=== PATIENT | female | born 1965 | race Caucasian/White ===

== ENCOUNTER 2019-06-03 12:11 | Inpatient (IN) | payer MEDICAID ==
[~2019-06-03] VITALS: Ht 165.1 cm; Wt 100.0 kg
[~2019-06-03 12:11] MED LIST: CLIN300C54 PO
[2019-06-03] MEDS ORDERED: fentaNYL/PF 50MCG/1 ML 2ML syringe IV ONE (12:45)
[2019-06-03] MEDS ORDERED: metoclopramide 5 mg/ml inj IV ONE (12:45)
[2019-06-03] MEDS ORDERED: ketorolac tromethamine 15mg/ml inj. IV ONE (12:45)
[2019-06-03] MEDS ORDERED: ketorolac trometh. 30mg/ml inj. IV ONE (12:45)
[2019-06-03] MEDS ORDERED: NO HOME MEDS (13:15)
[2019-06-03 13:17] LABS: BASOPHILS % (AUTO) 0.2 % (0-1); EOSINOPHILS % (AUTO) 0 % (0-6); HEMATOCRIT 36.3 % (35.0-45.0); HEMOGLOBIN 12.3 g/dl (12.0-16.0); LYMPHOCYTES % (AUTO) 4.4 % (21-51); MEAN CORPUSCULAR HGB CONC 33.8 g/dL (33.0-36.5); MEAN CORPUSCULAR VOLUME 88.6 FL (78-98); MONOCYTES # (AUTO) 1.2 X10'3 (0-0.9); MONOCYTES % (AUTO) 5.5 % (2-12); NEUTROPHILS # (AUTO) 19.3 X10'3 (1.8-7.7); NEUTROPHILS % (AUTO) 89.9 % (42-75); PLATELET COUNT 230 X10'3 (140-440); RED CELL DISTRIBUTION WIDTH 13.1 % (11.5-14.5); WHITE BLOOD COUNT 21.5 X10'3 (4.5-11.0)
[2019-06-03] MEDS ORDERED: levoFLOXACIN-Levaquin 750MG/D5 150 ML IV STA (13:21)
[2019-06-03] MEDS ORDERED: normal saline 1000ML IV soln IVB ONE ×2 (13:25)
[2019-06-03 13:29] LABS: PARTIAL THROMBOPLASTIN TIME 32 SECONDS (22-32)
[2019-06-03] MEDS ORDERED: iohexol 350MG/ML 100ml bottle IV ONE (13:30)
--- NOTE | 2019-06-03 13:35 | NUR ---
INITIATED ULTRASOUND GUIDED 20 GAUGE IV TO PT RIGHT UPPER ARM, PT TOLERATED PROCEDURE WELL.
[2019-06-03 13:47] LABS: PLATELET ESTIMATE NORMAL; TOTAL CELLS COUNTED 100
[2019-06-03 13:57] LABS: ALANINE AMINOTRANSFERASE 21 U/L (12-78); ALBUMIN 3.1 G/DL (3.4-5.0); ALBUMIN/GLOBULIN RATIO 0.7 (1.1-1.5); ALKALINE PHOSPHATASE 81 IU/L (46-116); ANION GAP 11 (8-16); ASPARTATE AMINO TRANSFERASE 12 U/L (10-37); BILIRUBIN,TOTAL 1.3 MG/DL (0.1-1.0); BLOOD UREA NITROGEN 17 MG/DL (7-18); BUN/CREATININE RATIO 17.2 (6.6-38.0); CALCIUM 8.9 MG/DL (8.5-10.1); CHLORIDE 99 MMOL/L (99-107); CREATININE 0.99 MG/DL (0.40-0.90); GLUCOSE 137 MG/DL (70-104); POTASSIUM 3.3 MMOL/L (3.5-5.1); SODIUM 135 MMOL/L (135-145); TOTAL CARBON DIOXIDE 25.3 MMOL/L (24-32); TOTAL PROTEIN 7.4 G/DL (6.4-8.2); eGFR 59 ML/MIN
[2019-06-03] MEDS: levoFLOXACIN-Levaquin 750MG/D5 150 ML IV STA ×2 (14:09→14:12)
[2019-06-03] MEDS ORDERED: aspirin 325mg tablet PO ONE (14:20)
[2019-06-03] MEDS ORDERED: ASPI-10 PO (14:35)
[2019-06-03] MEDS ORDERED: magnesium hydroxide 30ml (MOM) UD suspension PO PRN (14:45)
[2019-06-03] MEDS ORDERED: mag hydrox/Alum hydrox/simeth 30ml oral suspension PO PRN (14:45)
[2019-06-03] MEDS ORDERED: morphine 2 MG/ML inj. syringe IV PRN (14:45)
[2019-06-03] MEDS ORDERED: ondansetron/PF 4mg/2ml inj IV PRN (14:45)
[2019-06-03] MEDS ORDERED: acetaminophen 325mg tablet PO PRN (14:45)
[2019-06-03] MEDS: normal saline 1000ml 1,000 ML IV SCH ×2 (15:23→17:24)
[2019-06-03] MEDS: CefTRIAXone 2gm/D5W 50ml 50 ML IV SCH (15:23)
--- NOTE | 2019-06-03 16:21 | NUR ---
RECEIVED REPORT FROM LEONORA BARRETT. AWAITING PATIENT ARRIVAL.
[2019-06-03 16:40] VITALS: BP 100/62
--- NOTE | 2019-06-03 17:19 | NUR ---
PAGED MD REGARDING REPLACING K OF 3.3. WAITING FOR RESPONSE.
--- NOTE | 2019-06-03 17:42 | NUR ---
RILEY, Estevan 347B : PT'S LUNG SOUNDS VERY CRACKLY. PBNP: [id number]. WOULD YOU LIKE TO CONTINUE NS @ 100? JEANA [id number]
[2019-06-03] MEDS ORDERED: furosemide 40mg/4ml inj IV ONE (17:45)
[2019-06-03 17:58] VITALS: BP 122/64
[2019-06-03] MEDS ORDERED: potassium Cl 20 mEq SR tablet PO STA (18:12)
--- NOTE | 2019-06-03 18:30 | NUR ---
Patient in room [facility]. I have received report from JEANA and had the opportunity to ask questions and assume patient care.
--- NOTE | 2019-06-03 18:30 | NUR ---
PT SOB WITH LABORED BREATHING. PAIN 10/10 TO RIGHT LATERAL CHEST. C/O PAIN WITH INSPIRATION. RR 28. PT ASSISTED TO BSC TO VOID AND ASSISTED BACK INTO BED. MORPHINE FOR PAIN GIVEN. TEMP 101.6, TYLENOL GIVEN.
--- NOTE | 2019-06-03 18:30 | NUR ---
Problems reprioritized. Patient report given, questions answered & plan of care reviewed with LEONORA Ko.
--- NOTE | 2019-06-03 19:00 | NUR ---
PT RESTING AT THIS TIME. RR 20. PT STATES PAIN IS SUBSIDING. WILL CONTINUE TO MONITOR
[2019-06-03] MEDS: ipratropium/albuterol 3ml nebule NEB SCH ×2 (19:32→23:49)
[2019-06-03 20:20] LABS: CLARITY,URINE CLEAR (Clear); COLOR,URINE YELLOW (Yellow); GLUCOSE, URINE NEGATIVE (Neg); KETONES,URINE NEGATIVE (Neg); LEUKOCYTE ESTERASE ,URINE SMALL (Neg); NITRITES, URINE NEGATIVE (Neg); OCCULT BLOOD,URINE SMALL (Neg); PROTEIN,URINE NEGATIVE (Neg); UROBILINOGEN,URINE 0.2 E.U/dL (0.2-1.0)
[2019-06-03 20:26] LABS: URINE AMPHETAMINE SCREEN POSITIVE (Neg); URINE BARBITUATE SCREEN NEGATIVE (Neg); URINE BENZODIAZEPINES SCREEN NEGATIVE (Neg); URINE CANNABINOID SCREEN NEGATIVE (Neg); URINE COCAINE SCREEN NEGATIVE (Neg); URINE METHADONE SCREEN NEGATIVE (Neg); URINE OPIATE SCREEN POSITIVE (Neg); URINE PHENCYCLIDINE SCREEN NEGATIVE (Neg)
[2019-06-03 20:35] LABS: UA COLLECTION TYPE CLN CATCH MIDSTREAM
[2019-06-03 20:37] LABS: BACTERIA,URINE FEW /HPF (Neg); RBC,URINE 0-2 /HPF (0-2); SQUAMOUS EPITHELIAL CELL,UR FEW /LPF (FEW); WBC,URINE 0-4 /HPF (0-4)
[2019-06-03] MEDS: heparin, porcine 5000 units/ml vial SQ SCH (20:52)
[2019-06-03] MEDS: methylPREDNISolone sod succ/PF 40mg inj. IV SCH (20:52)
[2019-06-03 23:00] VITALS: BP 116/79
[2019-06-04 01:20] VITALS: BP 104/62
--- NOTE | 2019-06-04 01:20 | NUR ---
PT COOL AND CLAMMY TO TOUCH. DROWSY, BUT AROUSES EASILY. VSS: AR 104/62,HR 86, OXYGEN 95% 2L NC, TEMP 97.8 ORAL. BLOOD GLUCOSE 141. DR SYLVESTER NOTIFIED OF ABOVE INFORMATION, ALONG WITH +BLOOD CULTURES. GRAM + COCCI PAIRS, SHORT CHAINS AND AEROBIC BOTTLE. + AT 11.2 HOURS. ORDERS OBTAINED FOR LACTIC ACID
[2019-06-04 01:37] LABS: BASOPHILS % (AUTO) 0.2 % (0-1); EOSINOPHILS % (AUTO) 0 % (0-6); HEMATOCRIT 35.8 % (35.0-45.0); LYMPHOCYTES # (AUTO) 0.4 X10'3 (1.1-4.8); LYMPHOCYTES % (AUTO) 2.1 % (21-51); MEAN CORPUSCULAR HEMOGLOBIN 29.9 PG (27.0-31.0); MEAN CORPUSCULAR HGB CONC 33.6 g/dL (33.0-36.5); MEAN CORPUSCULAR VOLUME 89.1 FL (78-98); MEAN PLATELET VOLUME 8.1 FL (7.4-10.4); MONOCYTES # (AUTO) 0.5 X10'3 (0-0.9); MONOCYTES % (AUTO) 2.8 % (2-12); NEUTROPHILS # (AUTO) 17.2 X10'3 (1.8-7.7); NEUTROPHILS % (AUTO) 94.9 % (42-75); PLATELET COUNT 180 X10'3 (140-440); RED BLOOD COUNT 4.02 X10'6 (4.20-5.60); RED CELL DISTRIBUTION WIDTH 13.1 % (11.5-14.5); WHITE BLOOD COUNT 18.1 X10'3 (4.5-11.0)
[2019-06-04 01:52] LABS: ALBUMIN 2.6 G/DL (3.4-5.0); ANION GAP 12 (8-16); BLOOD UREA NITROGEN 14 MG/DL (7-18); BUN/CREATININE RATIO 18.2 (6.6-38.0); CALCIUM 8.7 MG/DL (8.5-10.1); CHLORIDE 104 MMOL/L (99-107); CREATININE 0.77 MG/DL (0.40-0.90); GLUCOSE 171 MG/DL (70-104); POTASSIUM 3.5 MMOL/L (3.5-5.1); SODIUM 136 MMOL/L (135-145); TOTAL CARBON DIOXIDE 20.2 MMOL/L (24-32); eGFR 79 ML/MIN
[2019-06-04] MEDS: methylPREDNISolone sod succ/PF 40mg inj. IV SCH ×4 (02:15→20:23)
[2019-06-04] MEDS: ipratropium/albuterol 3ml nebule NEB SCH ×6 (03:17→22:49)
[2019-06-04 05:00] VITALS: BP 108/80
--- NOTE | 2019-06-04 06:37 | NUR ---
Problems reprioritized. Patient report given, questions answered & plan of care reviewed with JEANA.
[2019-06-04 07:00] VITALS: BP 149/90
[2019-06-04] MEDS: CefTRIAXone 2gm/D5W 50ml 50 ML IV SCH (07:56)
[2019-06-04] MEDS: heparin, porcine 5000 units/ml vial SQ SCH ×2 (07:57→20:24)
[2019-06-04] MEDS: levoFLOXACIN-Levaquin 750MG/D5 150 ML IV SCH (09:09)
[2019-06-04] MEDS: nicotine 14mg patch - 24hr TD SCH (10:58)
[2019-06-04] MEDS ORDERED: FLU VACC QS2019-20 36MOS UP/PF 60 MCG/0.5 ML SYRINGE IMVAC ONE (11:00)
[2019-06-04 11:30] VITALS: BP 125/79
[2019-06-04] MEDS: HYDROcodone/acetaminophen 5mg/325mg tablet PO PRN ×2 (15:45→20:27)
[2019-06-04] MEDS ORDERED: PEG 3350/Na sulf,bicarb,Cl/KCl oral sol 4 liter bottle PO ONE (16:50)
--- NOTE | 2019-06-04 18:27 | NUR ---
Problems reprioritized. Patient report given, questions answered & plan of care reviewed with LEONORA Rivas.
[2019-06-04 20:00] VITALS: BP 148/76
[2019-06-04] MEDS: guaiFENesin ER 600mg tablet PO SCH (20:24)
[2019-06-04] MEDS: lactobacillus rhamnosus 10,000 MMU CELLS/CAPSULE PO SCH (20:24)
--- NOTE | 2019-06-04 21:50 | NUR ---
Patient in room [facility] 347. I have received report from LEONORA Camarillo and had the opportunity to ask questions and assume patient care. Addendum: 06/04/19 at 2153 by Eveyln Crabtree RN Amended: Links added.
--- NOTE | 2019-06-04 22:07 | NUR ---
call to MD for cough med with order received.
[2019-06-04 23:52] VITALS: BP 123/71
[2019-06-05] MEDS: methylPREDNISolone sod succ/PF 40mg inj. IV SCH ×3 (02:55→22:10)
[2019-06-05] MEDS: ipratropium/albuterol 3ml nebule NEB SCH ×6 (03:13→22:55)
[2019-06-05 05:20] LABS: BASOPHILS % (AUTO) 0.1 % (0-1); EOSINOPHILS % (AUTO) 0 % (0-6); HEMATOCRIT 33.6 % (35.0-45.0); HEMOGLOBIN 11.4 g/dl (12.0-16.0); LYMPHOCYTES # (AUTO) 0.6 X10'3 (1.1-4.8); LYMPHOCYTES % (AUTO) 3.4 % (21-51); MEAN CORPUSCULAR HEMOGLOBIN 29.9 PG (27.0-31.0); MEAN CORPUSCULAR VOLUME 87.9 FL (78-98); MEAN PLATELET VOLUME 8.6 FL (7.4-10.4); MONOCYTES # (AUTO) 0.5 X10'3 (0-0.9); MONOCYTES % (AUTO) 3.2 % (2-12); NEUTROPHILS # (AUTO) 15.1 X10'3 (1.8-7.7); NEUTROPHILS % (AUTO) 93.3 % (42-75); PLATELET COUNT 214 X10'3 (140-440); RED BLOOD COUNT 3.83 X10'6 (4.20-5.60); RED CELL DISTRIBUTION WIDTH 13.2 % (11.5-14.5); WHITE BLOOD COUNT 16.2 X10'3 (4.5-11.0)
[2019-06-05 05:23] LABS: ALBUMIN 2.4 G/DL (3.4-5.0); ANION GAP 8 (8-16); BLOOD UREA NITROGEN 20 MG/DL (7-18); BUN/CREATININE RATIO 27.8 (6.6-38.0); CHLORIDE 105 MMOL/L (99-107); CREATININE 0.72 MG/DL (0.40-0.90); GLUCOSE 297 MG/DL (70-104); POTASSIUM 3.7 MMOL/L (3.5-5.1); SODIUM 137 MMOL/L (135-145); TOTAL CARBON DIOXIDE 23.8 MMOL/L (24-32); eGFR 85 ML/MIN
--- NOTE | 2019-06-05 06:27 | NUR ---
Problems reprioritized. Patient report given, questions answered & plan of care reviewed with LEONORA Huynh. Addendum: 06/05/19 at 0628 by Evelyn Crabtree RN Amended: Links added.
[2019-06-05] MEDS: CefTRIAXone 2gm/D5W 50ml 50 ML IV SCH (07:23)
[2019-06-05] MEDS: guaiFENesin ER 600mg tablet PO SCH ×2 (07:37→22:10)
[2019-06-05] MEDS: lactobacillus rhamnosus 10,000 MMU CELLS/CAPSULE PO SCH ×2 (07:37→22:10)
[2019-06-05] MEDS: nicotine 14mg patch - 24hr TD SCH (07:39)
[2019-06-05] MEDS: heparin, porcine 5000 units/ml vial SQ SCH ×2 (07:42→22:11)
[2019-06-05 08:00] VITALS: BP 144/86
[2019-06-05] MEDS: levoFLOXACIN-Levaquin 750MG/D5 150 ML IV SCH (10:00)
--- NOTE | 2019-06-05 10:24 | NUR ---
pt left arm extended IV infiltrated and very itchy for pt. Dr. Lockhart aware and ordered for Benadryl 25mh PO to be given.
[2019-06-05] MEDS ORDERED: diphenhydrAMINE 25mg capsule PO PRN (10:25)
[2019-06-05 12:10] VITALS: BP 140/85
--- NOTE | 2019-06-05 18:39 | NUR ---
Problems reprioritized. Patient report given, questions answered & plan of care reviewed with BetyRN.
[2019-06-05 19:30] VITALS: BP 146/85
[2019-06-06] VITALS: BP 137/83
[2019-06-06] MEDS: ipratropium/albuterol 3ml nebule NEB SCH ×8 (03:17→23:00)
--- NOTE | 2019-06-06 06:21 | NUR ---
Patient in room [facility]. I have received report from LEONORA CHOI and had the opportunity to ask questions and assume patient care.
[2019-06-06 07:00] VITALS: BP 125/78
[2019-06-06] MEDS: lactobacillus rhamnosus 10,000 MMU CELLS/CAPSULE PO SCH ×2 (07:52→19:22)
[2019-06-06] MEDS: methylPREDNISolone sod succ/PF 40mg inj. IV SCH ×2 (07:52→19:21)
[2019-06-06] MEDS: guaiFENesin ER 600mg tablet PO SCH ×2 (07:52→19:22)
[2019-06-06] MEDS: heparin, porcine 5000 units/ml vial SQ SCH ×2 (07:52→19:22)
[2019-06-06] MEDS: CefTRIAXone 2gm/D5W 50ml 50 ML IV SCH (07:53)
[2019-06-06] MEDS: nicotine 14mg patch - 24hr TD SCH (07:53)
[2019-06-06] MEDS: levoFLOXACIN-Levaquin 750MG/D5 150 ML IV SCH (08:55)
[2019-06-06 09:55] LABS: BASOPHILS % (AUTO) 0.1 % (0-1); EOSINOPHILS % (AUTO) 0 % (0-6); HEMATOCRIT 36.9 % (35.0-45.0); HEMOGLOBIN 12.2 g/dl (12.0-16.0); LYMPHOCYTES % (AUTO) 6.3 % (21-51); MEAN CORPUSCULAR HEMOGLOBIN 29.8 PG (27.0-31.0); MEAN CORPUSCULAR VOLUME 90.2 FL (78-98); MEAN PLATELET VOLUME 8.4 FL (7.4-10.4); MONOCYTES # (AUTO) 0.7 X10'3 (0-0.9); MONOCYTES % (AUTO) 4.2 % (2-12); NEUTROPHILS # (AUTO) 13.8 X10'3 (1.8-7.7); NEUTROPHILS % (AUTO) 89.4 % (42-75); PLATELET COUNT 194 X10'3 (140-440); RED BLOOD COUNT 4.09 X10'6 (4.20-5.60); WHITE BLOOD COUNT 15.5 X10'3 (4.5-11.0)
[2019-06-06 10:02] LABS: ALBUMIN 2.4 G/DL (3.4-5.0); ANION GAP 11 (8-16); BLOOD UREA NITROGEN 24 MG/DL (7-18); CALCIUM 9.3 MG/DL (8.5-10.1); CHLORIDE 105 MMOL/L (99-107); GLUCOSE 237 MG/DL (70-104); POTASSIUM 4.2 MMOL/L (3.5-5.1); SODIUM 139 MMOL/L (135-145); TOTAL CARBON DIOXIDE 23.2 MMOL/L (24-32); eGFR 75 ML/MIN
--- NOTE | 2019-06-06 10:12 | NUR ---
Initial: Pt admit with sepsis secondary to PNA and COPD exacerbation. Blood cultures growing gram-positive cocci and pt receiving steroids for COPD per MD notes. Pt currently on heart healthy diet documented with 100% PO intake meeting nutrient needs. LB 06/05. Skin intact. No nutrition diagnosis at this time. Will continue to follow. Recommendations: 1) Continue heart healthy diet 2) Bowel care 3) Wt per rx Addendum: 06/06/19 at [address] Amended: Links added.
[2019-06-06 11:52] VITALS: BP 125/64
[2019-06-06] MEDS ORDERED: FLU VACC QS2019-20 36MOS UP/PF 60 MCG/0.5 ML SYRINGE IMVAC ONE (12:10)
[2019-06-06] MEDS: HYDROcodone/acetaminophen 5mg/325mg tablet PO PRN ×2 (13:39→21:28)
--- NOTE | 2019-06-06 16:00 | NUR ---
I have reviewed and agree with all medications administered and interventions performed by DIGITAL STRATEGIST SENIOR MANAGER Student Lawrence Hernandez.
--- NOTE | 2019-06-06 18:28 | NUR ---
Problems reprioritized. Patient report given, questions answered & plan of care reviewed with LEONORA RAM.
[2019-06-06 20:00] VITALS: BP 122/75
--- NOTE | 2019-06-06 23:33 | NUR ---
Patient refusing 2300 and 0300 resp treatments; wants to sleep.
[2019-06-07] VITALS: BP 126/66
[2019-06-07] MEDS: ipratropium/albuterol 3ml nebule NEB SCH ×6 (02:50→23:10)
[2019-06-07 05:24] LABS: BASOPHILS % (AUTO) 0 % (0-1); EOSINOPHILS % (AUTO) 0 % (0-6); HEMATOCRIT 34.4 % (35.0-45.0); HEMOGLOBIN 12.1 g/dl (12.0-16.0); LYMPHOCYTES # (AUTO) 0.9 X10'3 (1.1-4.8); LYMPHOCYTES % (AUTO) 9.8 % (21-51); MEAN CORPUSCULAR HEMOGLOBIN 30.6 PG (27.0-31.0); MEAN CORPUSCULAR HGB CONC 35.1 g/dL (33.0-36.5); MEAN CORPUSCULAR VOLUME 87.3 FL (78-98); MEAN PLATELET VOLUME 7.9 FL (7.4-10.4); MONOCYTES # (AUTO) 0.6 X10'3 (0-0.9); MONOCYTES % (AUTO) 6.8 % (2-12); NEUTROPHILS # (AUTO) 7.8 X10'3 (1.8-7.7); NEUTROPHILS % (AUTO) 83.4 % (42-75); PLATELET COUNT 222 X10'3 (140-440); RED BLOOD COUNT 3.94 X10'6 (4.20-5.60); RED CELL DISTRIBUTION WIDTH 12.6 % (11.5-14.5); WHITE BLOOD COUNT 9.4 X10'3 (4.5-11.0)
[2019-06-07 05:31] LABS: ALBUMIN 2.3 G/DL (3.4-5.0); ANION GAP 6 (8-16); BLOOD UREA NITROGEN 17 MG/DL (7-18); BUN/CREATININE RATIO 25.8 (6.6-38.0); CALCIUM 8.5 MG/DL (8.5-10.1); CHLORIDE 103 MMOL/L (99-107); CREATININE 0.66 MG/DL (0.40-0.90); GLUCOSE 193 MG/DL (70-104); POTASSIUM 4.2 MMOL/L (3.5-5.1); SODIUM 137 MMOL/L (135-145); TOTAL CARBON DIOXIDE 27.7 MMOL/L (24-32); eGFR > 90 ML/MIN
--- NOTE | 2019-06-07 06:30 | NUR ---
Patient in room [facility]. I have received report from YO LEA and had the opportunity to ask questions and assume patient care.
[2019-06-07 07:17] VITALS: BP 140/82
[2019-06-07 07:42] LABS: PLATELET ESTIMATE NORMAL; TOTAL CELLS COUNTED 100
[2019-06-07] MEDS: nicotine 14mg patch - 24hr TD SCH (08:34)
[2019-06-07] MEDS: levoFLOXACIN-Levaquin 750MG/D5 150 ML IV SCH (08:35)
[2019-06-07] MEDS: methylPREDNISolone sod succ/PF 40mg inj. IV SCH ×2 (08:36→19:45)
[2019-06-07] MEDS: lactobacillus rhamnosus 10,000 MMU CELLS/CAPSULE PO SCH ×2 (08:42→19:45)
[2019-06-07] MEDS: guaiFENesin ER 600mg tablet PO SCH ×2 (08:42→19:45)
[2019-06-07] MEDS: heparin, porcine 5000 units/ml vial SQ SCH ×2 (08:44→19:45)
[2019-06-07] MEDS: CefTRIAXone 2gm/D5W 50ml 50 ML IV SCH (10:27)
[2019-06-07] MEDS: HYDROcodone/acetaminophen 5mg/325mg tablet PO PRN (15:03)
[2019-06-07 18:00] VITALS: BP 119/62
--- NOTE | 2019-06-07 18:30 | NUR ---
Problems reprioritized. Patient report given, questions answered & plan of care reviewed with PRUDENCE RN.
--- NOTE | 2019-06-07 18:54 | NUR ---
Patient in room [facility]. I have received report from Gee LEA and had the opportunity to ask questions and assume patient care. Patient is with family in the room with no apparent distress.
[2019-06-08] VITALS: BP 146/86
[2019-06-08] MEDS: ipratropium/albuterol 3ml nebule NEB SCH ×3 (03:00→11:00)
[2019-06-08 06:03] LABS: BASOPHILS % (AUTO) 0.1 % (0-1); EOSINOPHILS % (AUTO) 0.1 % (0-6); HEMATOCRIT 35.8 % (35.0-45.0); HEMOGLOBIN 12.2 g/dl (12.0-16.0); LYMPHOCYTES # (AUTO) 1.2 X10'3 (1.1-4.8); LYMPHOCYTES % (AUTO) 10.5 % (21-51); MEAN CORPUSCULAR HEMOGLOBIN 30.1 PG (27.0-31.0); MEAN CORPUSCULAR VOLUME 88.4 FL (78-98); MEAN PLATELET VOLUME 7.9 FL (7.4-10.4); MONOCYTES # (AUTO) 0.8 X10'3 (0-0.9); MONOCYTES % (AUTO) 7.3 % (2-12); NEUTROPHILS # (AUTO) 9.3 X10'3 (1.8-7.7); PLATELET COUNT 243 X10'3 (140-440); RED BLOOD COUNT 4.05 X10'6 (4.20-5.60); RED CELL DISTRIBUTION WIDTH 12.7 % (11.5-14.5); WHITE BLOOD COUNT 11.4 X10'3 (4.5-11.0)
--- NOTE | 2019-06-08 06:08 | NUR ---
Problems reprioritized. Patient report given, questions answered & plan of care reviewed with Gee RN. Patient slept well through the night and denied having pain.
[2019-06-08 06:38] LABS: ALBUMIN 2.5 G/DL (3.4-5.0); ANION GAP 6 (8-16); BLOOD UREA NITROGEN 16 MG/DL (7-18); BUN/CREATININE RATIO 22.5 (6.6-38.0); CALCIUM 8.3 MG/DL (8.5-10.1); CHLORIDE 101 MMOL/L (99-107); CREATININE 0.71 MG/DL (0.40-0.90); GLUCOSE 213 MG/DL (70-104); POTASSIUM 4.1 MMOL/L (3.5-5.1); SODIUM 135 MMOL/L (135-145); TOTAL CARBON DIOXIDE 27.9 MMOL/L (24-32); eGFR 86 ML/MIN
--- NOTE | 2019-06-08 07:06 | NUR ---
patient refused svn tx Addendum: 06/08/19 at 0707 by Sherron Scott RT Amended: Links added.
[2019-06-08 07:17] VITALS: BP 144/83
[2019-06-08 07:29] LABS: PLATELET ESTIMATE NORMAL; TOTAL CELLS COUNTED 100
[2019-06-08] MEDS: guaiFENesin ER 600mg tablet PO SCH (08:13)
[2019-06-08] MEDS: heparin, porcine 5000 units/ml vial SQ SCH (08:13)
[2019-06-08] MEDS: lactobacillus rhamnosus 10,000 MMU CELLS/CAPSULE PO SCH (08:13)
[2019-06-08] MEDS: nicotine 14mg patch - 24hr TD SCH (08:15)
[2019-06-08] MEDS: methylPREDNISolone sod succ/PF 40mg inj. IV SCH (08:16)
[2019-06-08] MEDS ORDERED: ALBU18HF2 IH (10:26)
[2019-06-08] MEDS ORDERED: NICO-631 TD (10:26)
[2019-06-08] MEDS ORDERED: FLUT1DIS4 INH (10:26)
[2019-06-08] MEDS ORDERED: LEVO750T46 PO (10:26)
[2019-06-08 11:00] VITALS: BP 138/91
[2019-06-08] MEDS ORDERED: levoFLOXACIN 750MG TABLET PO SCH (11:00)
--- NOTE | 2019-06-08 11:30 | NUR ---
patient refused going home Addendum: 06/08/19 at 1131 by Sherron Scott RT Amended: Links added.
--- NOTE | 2019-06-08 14:00 | NUR ---
PATIENT DISCHARGED INTO HER OWN CARE. PATIENT IV TAKE OUT AT THIS TIME. NO BLEEDING WAS NOTED AND IV CANULA WAS INTACT AND WHOLE UPON DC. PATIENT LEFT WITH ALL OF HER BELONGINGS AND NEW MEDICATION CALLED INTO THE PHARMACY AND PATIENT EDUCATED ON CHANGES. PATIENT LEFT VIA WHEEL CHAIR AND LEFT HOSPITAL IN PRIVATE VEHICLE.
== END 2019-06-08 12:10 | disposition home or self-care (01) | DRG 720 ==
LOC: ER 12:12 → ED HOLD 14:45 → SUR 3N 16:36
PROVIDERS: ADMIT Family Medicine; ATTEND Hospitalist
PROC: B32T1ZZ Computerized Tomography (CT Scan) of Left Pulmonary Artery using Low Osmolar Contrast (ICD-10-PCS; principal; 2019-06-03)
PROC: B32S1ZZ Computerized Tomography (CT Scan) of Right Pulmonary Artery using Low Osmolar Contrast (ICD-10-PCS; 2019-06-03)
DX: A41.9 Sepsis, unspecified organism (principal); J15.9 Unspecified bacterial pneumonia; F15.10 Other stimulant abuse, uncomplicated; F17.210 Nicotine dependence, cigarettes, uncomplicated; J44.0 Chronic obstructive pulmonary disease with (acute) lower respiratory infection; J44.1 Chronic obstructive pulmonary disease with (acute) exacerbation; Z79.82 Long term (current) use of aspirin; Z79.899 Other long term (current) drug therapy
CPT/HCPCS: 36415; 71045; 71275; 76937; 80048; 80053; 80305; 81001; 82948; 83036; 83605; 83880; 84145; 84484; 85025; 85610; 85730; 87040; 87077; 87081; 87088; 87186; 87502; 87503; 93005; 93306; 94640; 94667; 94668; 94760; 96365; 96375; 99285; G0378; J0696; J1644; J1885; J1940; J1956; J2270; J2765; J2920; J3010; J7030; Q0163; Q2037; Q9967

== ENCOUNTER 2019-06-16 18:05 | Inpatient (IN) | payer MEDICAID ==
[~2019-06-16] VITALS: Ht 165.1 cm; Wt 100.0 kg
[~2019-06-16 18:05] MED LIST changes: +ALBU18HF2 IH; +ASPI-10 PO; -CLIN300C54 PO; +FLUT1DIS4 INH; +LEVO750T46 PO; +NICO-631 TD
[2019-06-16 18:56] LABS: BASOPHILS # (AUTO) 0.1 X10'3 (0-0.2); BASOPHILS % (AUTO) 0.5 % (0-1); EOSINOPHILS # (AUTO) 0.3 X10'3 (0-0.9); EOSINOPHILS % (AUTO) 2.1 % (0-6); HEMATOCRIT 34.8 % (35.0-45.0); HEMOGLOBIN 11.9 g/dl (12.0-16.0); LYMPHOCYTES % (AUTO) 6.5 % (21-51); MEAN CORPUSCULAR HGB CONC 34.1 g/dL (33.0-36.5); MEAN CORPUSCULAR VOLUME 88.1 FL (78-98); MEAN PLATELET VOLUME 7.4 FL (7.4-10.4); MONOCYTES # (AUTO) 1.8 X10'3 (0-0.9); MONOCYTES % (AUTO) 11.6 % (2-12); NEUTROPHILS # (AUTO) 12.5 X10'3 (1.8-7.7); NEUTROPHILS % (AUTO) 79.3 % (42-75); PLATELET COUNT 299 X10'3 (140-440); RED BLOOD COUNT 3.95 X10'6 (4.20-5.60); RED CELL DISTRIBUTION WIDTH 13.1 % (11.5-14.5); WHITE BLOOD COUNT 15.8 X10'3 (4.5-11.0)
[2019-06-16 19:10] LABS: ALANINE AMINOTRANSFERASE 25 U/L (12-78); ALBUMIN 2.7 G/DL (3.4-5.0); ALBUMIN/GLOBULIN RATIO 0.7 (1.1-1.5); ALKALINE PHOSPHATASE 68 IU/L (46-116); ANION GAP 11 (8-16); ASPARTATE AMINO TRANSFERASE 11 U/L (10-37); BILIRUBIN,TOTAL 0.8 MG/DL (0.1-1.0); BLOOD UREA NITROGEN 13 MG/DL (7-18); CALCIUM 8.1 MG/DL (8.5-10.1); CHLORIDE 102 MMOL/L (99-107); CREATININE 0.65 MG/DL (0.40-0.90); GLUCOSE 226 MG/DL (70-104); POTASSIUM 3.7 MMOL/L (3.5-5.1); SODIUM 138 MMOL/L (135-145); TOTAL CARBON DIOXIDE 25.2 MMOL/L (24-32); TOTAL PROTEIN 6.8 G/DL (6.4-8.2); eGFR > 90 ML/MIN
[2019-06-16] MEDS ORDERED: methylPREDNISolone sod succ 125mg/2ml vial IV ONE (19:10)
[2019-06-16] MEDS ORDERED: ipratropium/albuterol 3ml nebule NEB ONE (19:10)
[2019-06-16] MEDS ORDERED: normal saline 1000ML IV soln IVB ONE (19:10)
--- NOTE | 2019-06-16 19:31 | NUR ---
RESP HERE TO SEE PT
--- NOTE | 2019-06-16 20:41 | NUR ---
dr cartagena to see pt suggesting pt received an hour long med tiffani tx for wheezing updated plan of care with patient. pt resting with hob elevated 30 degrees o2 sats 96 % room air
[2019-06-16] MEDS ORDERED: albuterol 2.5 MG/3 ML nebule CONTNEB PRN (20:50)
--- NOTE | 2019-06-16 21:00 | NUR ---
WOOD FILLER PAGGED RESP. FOR PT TX
[2019-06-16] MEDS ORDERED: mag hydrox/Alum hydrox/simeth 30ml oral suspension PO PRN (21:20)
[2019-06-16] MEDS ORDERED: acetaminophen 325mg tablet PO PRN ×2 (21:20)
[2019-06-16] MEDS ORDERED: morphine 2 MG/ML inj. syringe IV PRN ×2 (21:20)
[2019-06-16] MEDS ORDERED: ondansetron/PF 4mg/2ml inj IV PRN (21:20)
[2019-06-16] MEDS ORDERED: HYDROcodone/acetaminophen 10/325mg tab PO PRN (21:20)
[2019-06-16] MEDS ORDERED: magnesium hydroxide 30ml (MOM) UD suspension PO PRN (21:20)
--- NOTE | 2019-06-16 22:13 | NUR ---
pt to ct
--- NOTE | 2019-06-16 22:30 | NUR ---
RECEIVED PATIENT FROM ROBERT LEA AND ASSUMED PATIENT CARE
[2019-06-16 22:58] VITALS: BP 116/70
[2019-06-17] VITALS (8 sets, daily range): BP systolic 107–129; BP diastolic 62–86
[2019-06-17] MEDS: CefTRIAXone/D5W-Rocephin 1gm 50 ML IV SCH ×2 (00:08→07:28)
--- NOTE | 2019-06-17 06:17 | NUR ---
REPORT GIVEN TO JACY LEA
--- NOTE | 2019-06-17 06:30 | NUR ---
Patient in room [facility]014. I have received report from LEONORA Fam and had the opportunity to ask questions and assume patient care.
[2019-06-17] MEDS: enoxaparin 40mg/0.4ml syringe SUBCUT SCH (06:32)
[2019-06-17 06:55] LABS: BASOPHILS % (AUTO) 0.1 % (0-1); EOSINOPHILS % (AUTO) 0 % (0-6); HEMATOCRIT 34.2 % (35.0-45.0); HEMOGLOBIN 11.5 g/dl (12.0-16.0); LYMPHOCYTES # (AUTO) 0.4 X10'3 (1.1-4.8); LYMPHOCYTES % (AUTO) 2.7 % (21-51); MEAN CORPUSCULAR HEMOGLOBIN 29.8 PG (27.0-31.0); MEAN CORPUSCULAR HGB CONC 33.7 g/dL (33.0-36.5); MEAN CORPUSCULAR VOLUME 88.3 FL (78-98); MEAN PLATELET VOLUME 7.9 FL (7.4-10.4); MONOCYTES # (AUTO) 0.4 X10'3 (0-0.9); MONOCYTES % (AUTO) 3.4 % (2-12); NEUTROPHILS # (AUTO) 12.1 X10'3 (1.8-7.7); NEUTROPHILS % (AUTO) 93.8 % (42-75); PLATELET COUNT 282 X10'3 (140-440); RED BLOOD COUNT 3.88 X10'6 (4.20-5.60); RED CELL DISTRIBUTION WIDTH 12.9 % (11.5-14.5); WHITE BLOOD COUNT 12.9 X10'3 (4.5-11.0)
[2019-06-17 07:04] LABS: ALBUMIN 2.4 G/DL (3.4-5.0); ANION GAP 10 (8-16); BLOOD UREA NITROGEN 17 MG/DL (7-18); BUN/CREATININE RATIO 23.3 (6.6-38.0); CALCIUM 9.8 MG/DL (8.5-10.1); CHLORIDE 103 MMOL/L (99-107); CREATININE 0.73 MG/DL (0.40-0.90); GLUCOSE 369 MG/DL (70-104); SODIUM 135 MMOL/L (135-145); TOTAL CARBON DIOXIDE 21.9 MMOL/L (24-32); eGFR 84 ML/MIN
[2019-06-17] MEDS: furosemide 20 MG/2 ML vial IV SCH ×2 (07:29→20:20)
--- NOTE | 2019-06-17 10:40 | NUR ---
IR here to complete Thoracentesis as ordered on pt per Dr. Lockhart. Per PHYLLIS Malin, pt did well. Volume of bloody fluid removed was 650 ml. Post op vital signs taken when procedure was completed at 1110 were HR 91. 93% on room air. BP 120/74. Pt reports immediate "coughing attack" immediately after procedure. Post Thoracentesis bedside x-ray was done at 1121 by Radiology. Will continue to monitor pt closely.
[2019-06-17 11:50] LABS: BFSOURCE RIGHT PLEURAL FLD; PLEURAL FLUID PH 7.378 (7.63-7.65)
[2019-06-17 11:56] LABS: GLUCOSE,BODY FLUID 326 MG/DL; LDH,BODY FLUID 348 U/L
[2019-06-17] MEDS: HYDROcodone/acetaminophen 5mg/325mg tablet PO PRN (12:11)
[2019-06-17 12:32] LABS: BF RBC COUNT 46875 /CU MM; BF WBC COUNT 3250 /CU MM (0-1000); BFAPPEAR CLOUDY; BFCOLOR RED; BFVOLUME 58 ML; EOSINOPHILS,BODY FLUID 9 %; LYMPHOCYTES,BODY FLUID 21 %; MONOCYTES,BODY FLUID 5 %; NEUTROPHILS,BODY FLUID 65 %
--- NOTE | 2019-06-17 12:47 | NUR ---
Student documentation:I have reviewed and agree with all interventions, assessments performed and documented by Anni Powell.
--- NOTE | 2019-06-17 18:00 | NUR ---
RECEIVED REPORT FROM JACY LEA AND ASSUMED PATIENT CARE
--- NOTE | 2019-06-17 18:32 | NUR ---
Problems reprioritized. Patient report given, questions answered & plan of care reviewed with LEONORA Diehl.
--- NOTE | 2019-06-17 19:28 | NUR ---
NONCOMPLIANCE, ANXIETY, AND RENAL INSUFFICIENCY PROBLEMS ADDED TO CARE PLAN ON WRONG PATIENT. PLEASE DISREGARD.
[2019-06-17] MEDS: lactobacillus rhamnosus 10,000 MMU CELLS/CAPSULE PO SCH (20:20)
[2019-06-18 06:00] VITALS: BP 122/78
[2019-06-18 06:17] LABS: BASOPHILS # (AUTO) 0.1 X10'3 (0-0.2); BASOPHILS % (AUTO) 0.5 % (0-1); EOSINOPHILS # (AUTO) 0.2 X10'3 (0-0.9); EOSINOPHILS % (AUTO) 1.7 % (0-6); HEMATOCRIT 32.9 % (35.0-45.0); HEMOGLOBIN 11.2 g/dl (12.0-16.0); LYMPHOCYTES # (AUTO) 1.8 X10'3 (1.1-4.8); LYMPHOCYTES % (AUTO) 15.6 % (21-51); MEAN CORPUSCULAR HEMOGLOBIN 29.9 PG (27.0-31.0); MEAN CORPUSCULAR VOLUME 87.8 FL (78-98); MEAN PLATELET VOLUME 7.6 FL (7.4-10.4); MONOCYTES # (AUTO) 0.8 X10'3 (0-0.9); MONOCYTES % (AUTO) 6.8 % (2-12); NEUTROPHILS # (AUTO) 8.5 X10'3 (1.8-7.7); NEUTROPHILS % (AUTO) 75.4 % (42-75); PLATELET COUNT 291 X10'3 (140-440); RED BLOOD COUNT 3.74 X10'6 (4.20-5.60); RED CELL DISTRIBUTION WIDTH 13.1 % (11.5-14.5); WHITE BLOOD COUNT 11.3 X10'3 (4.5-11.0)
[2019-06-18 06:30] LABS: ALBUMIN 2.3 G/DL (3.4-5.0); ANION GAP 8 (8-16); BLOOD UREA NITROGEN 19 MG/DL (7-18); BUN/CREATININE RATIO 26.8 (6.6-38.0); CALCIUM 8.4 MG/DL (8.5-10.1); CHLORIDE 105 MMOL/L (99-107); CREATININE 0.71 MG/DL (0.40-0.90); GLUCOSE 160 MG/DL (70-104); POTASSIUM 3.8 MMOL/L (3.5-5.1); SODIUM 141 MMOL/L (135-145); TOTAL CARBON DIOXIDE 27.6 MMOL/L (24-32); eGFR 86 ML/MIN
--- NOTE | 2019-06-18 06:30 | NUR ---
Patient in room [facility]014. I have received report from LEONORA Diehl and had the opportunity to ask questions and assume patient care.
[2019-06-18] MEDS: CefTRIAXone/D5W-Rocephin 1gm 50 ML IV SCH (07:51)
[2019-06-18] MEDS: furosemide 20 MG/2 ML vial IV SCH ×2 (07:51→19:38)
[2019-06-18] MEDS: lactobacillus rhamnosus 10,000 MMU CELLS/CAPSULE PO SCH ×2 (07:52→19:38)
[2019-06-18] MEDS: enoxaparin 40mg/0.4ml syringe SUBCUT SCH (07:53)
[2019-06-18 08:00] VITALS: BP 111/78
[2019-06-18 09:30] VITALS: BP 114/78
[2019-06-18 10:00] VITALS: BP 117/69
--- NOTE | 2019-06-18 11:00 | NUR ---
Responded to pts room d/t report of patient and her daughter (Nadira Sepulveda) fighting verbally (loudly). Daughter in pts room with escalated emotion and yelling at her mom and pt was yelling back at her. Requested the daughter remove herself from the room and leave the hospital at this time. Daughter continued to yell at her mom and left the room. Spoke with pt and was informed daughter threatening and not listening to patient. A joint decision was made with mom to notify Security that pt is not to return to the hospital while pt is here. Pt reports she is "extremely stressed out," and cannot get well with the current antics of her daughter. TC placed to Security at the front desk officer and they will not allow future visits by the patients daughter during this hospitalization. Will continue to monitor.
[2019-06-18] MEDS: HYDROcodone/acetaminophen 5mg/325mg tablet PO PRN (11:07)
--- NOTE | 2019-06-18 12:03 | NUR ---
Student Medication Administration:For this medication-pass time frame [id number], all medications were reviewed, administered and documented per hospital policy by Anni Powell. Student documentation:I have reviewed and agree with all interventions, assessments performed and documented by Anni Powell.
[2019-06-18 18:00] VITALS: BP 105/69
--- NOTE | 2019-06-18 18:32 | NUR ---
Problems reprioritized. Patient report given, questions answered & plan of care reviewed with LEONORA Diehl.
[2019-06-18] MEDS ORDERED: pneumococcal 23-VAL P-sac vacc 25 mcg/0.5ml vial IMVAC ONE (18:45)
--- NOTE | 2019-06-18 19:06 | NUR ---
RECEIVED REPORT FROM JACY LEA AND ASSUMED PATIENT CARE
[2019-06-18 22:00] VITALS: BP 112/76
[2019-06-19 05:00] VITALS: BP 126/70
[2019-06-19 05:06] LABS: ALBUMIN 2.3 G/DL (3.4-5.0); ANION GAP 7 (8-16); BLOOD UREA NITROGEN 18 MG/DL (7-18); BUN/CREATININE RATIO 29.5 (6.6-38.0); CALCIUM 8.8 MG/DL (8.5-10.1); CHLORIDE 101 MMOL/L (99-107); CREATININE 0.61 MG/DL (0.40-0.90); GLUCOSE 177 MG/DL (70-104); SODIUM 138 MMOL/L (135-145); TOTAL CARBON DIOXIDE 29.9 MMOL/L (24-32); eGFR > 90 ML/MIN
[2019-06-19 05:34] LABS: BASOPHILS % (AUTO) 0.5 % (0-1); EOSINOPHILS # (AUTO) 0.3 X10'3 (0-0.9); EOSINOPHILS % (AUTO) 4.4 % (0-6); HEMATOCRIT 35.6 % (35.0-45.0); HEMOGLOBIN 12.1 g/dl (12.0-16.0); LYMPHOCYTES # (AUTO) 1.5 X10'3 (1.1-4.8); LYMPHOCYTES % (AUTO) 19.1 % (21-51); MEAN CORPUSCULAR HEMOGLOBIN 29.8 PG (27.0-31.0); MEAN CORPUSCULAR VOLUME 87.6 FL (78-98); MEAN PLATELET VOLUME 7.7 FL (7.4-10.4); MONOCYTES # (AUTO) 0.6 X10'3 (0-0.9); NEUTROPHILS # (AUTO) 5.5 X10'3 (1.8-7.7); PLATELET COUNT 366 X10'3 (140-440); RED BLOOD COUNT 4.06 X10'6 (4.20-5.60)
--- NOTE | 2019-06-19 06:40 | NUR ---
Patient in room [facility] 4014. I have received report from LEONORA Huynh and had the opportunity to ask questions and assume patient care.
[2019-06-19] MEDS: HYDROcodone/acetaminophen 5mg/325mg tablet PO PRN ×2 (09:20→19:10)
[2019-06-19] MEDS: lactobacillus rhamnosus 10,000 MMU CELLS/CAPSULE PO SCH ×2 (09:20→19:10)
--- NOTE | 2019-06-19 09:20 | NUR ---
Student Medication Administration: For this medication-pass time frame, all medication were reviewed, dispensed, administered and documented per hospital policy by SN Isaías.
[2019-06-19] MEDS: enoxaparin 40mg/0.4ml syringe SUBCUT SCH (09:22)
[2019-06-19] MEDS: CefTRIAXone/D5W-Rocephin 1gm 50 ML IV SCH (09:25)
[2019-06-19] MEDS: furosemide 20 MG/2 ML vial IV SCH ×2 (09:48→19:11)
[2019-06-19 10:00] VITALS: BP 113/77
--- NOTE | 2019-06-19 11:59 | NUR ---
Patient report given to LEONORA Huynh. Patient resting comfortably.
--- NOTE | 2019-06-19 12:11 | NUR ---
Student documentation: I have reviewed and agree with all interventions, assessments performed and documented [facility].
[2019-06-19 12:45] LABS: HIV ANTIBODY 1&2 RAPID NON-REACTIVE (Neg)
[2019-06-19 18:00] VITALS: BP 116/74
--- NOTE | 2019-06-19 18:54 | NUR ---
Patient in room [facility] 4014. I have received report from LEONORA Huynh and had the opportunity to ask questions and assume patient care.
[2019-06-19 22:00] VITALS: BP 127/82
[2019-06-20 06:00] VITALS: BP 115/72
--- NOTE | 2019-06-20 06:15 | NUR ---
Problems reprioritized. Patient report given, questions answered & plan of care reviewed with LEONORA Loya.
[2019-06-20 06:16] LABS: BASOPHILS # (AUTO) 0.1 X10'3 (0-0.2); EOSINOPHILS # (AUTO) 0.5 X10'3 (0-0.9); EOSINOPHILS % (AUTO) 7.1 % (0-6); HEMATOCRIT 37.4 % (35.0-45.0); HEMOGLOBIN 12.7 g/dl (12.0-16.0); LYMPHOCYTES # (AUTO) 1.1 X10'3 (1.1-4.8); LYMPHOCYTES % (AUTO) 15.7 % (21-51); MEAN CORPUSCULAR VOLUME 88.1 FL (78-98); MEAN PLATELET VOLUME 7.6 FL (7.4-10.4); MONOCYTES # (AUTO) 0.5 X10'3 (0-0.9); MONOCYTES % (AUTO) 6.8 % (2-12); NEUTROPHILS # (AUTO) 5.1 X10'3 (1.8-7.7); NEUTROPHILS % (AUTO) 69.4 % (42-75); PLATELET COUNT 326 X10'3 (140-440); RED BLOOD COUNT 4.24 X10'6 (4.20-5.60); RED CELL DISTRIBUTION WIDTH 12.8 % (11.5-14.5); WHITE BLOOD COUNT 7.3 X10'3 (4.5-11.0)
[2019-06-20 06:28] LABS: ALBUMIN 2.4 G/DL (3.4-5.0); ANION GAP 8 (8-16); BLOOD UREA NITROGEN 20 MG/DL (7-18); CHLORIDE 101 MMOL/L (99-107); CREATININE 0.69 MG/DL (0.40-0.90); GLUCOSE 204 MG/DL (70-104); POTASSIUM 4.1 MMOL/L (3.5-5.1); SODIUM 138 MMOL/L (135-145); TOTAL CARBON DIOXIDE 28.9 MMOL/L (24-32); eGFR 89 ML/MIN
--- NOTE | 2019-06-20 06:41 | NUR ---
Patient in room [facility] 4014. I have received report from Jud and had the opportunity to ask questions and assume patient care.
[2019-06-20] MEDS: furosemide 20 MG/2 ML vial IV SCH (08:24)
[2019-06-20] MEDS: enoxaparin 40mg/0.4ml syringe SUBCUT SCH (08:25)
[2019-06-20] MEDS: lactobacillus rhamnosus 10,000 MMU CELLS/CAPSULE PO SCH (08:25)
[2019-06-20] MEDS: HYDROcodone/acetaminophen 5mg/325mg tablet PO PRN (08:38)
[2019-06-20] MEDS ORDERED: FLU VACC QS2019-20(6MOS UP)/PF 60 MCG/0.5 ML SYRINGE IMVAC ONE (09:40)
[2019-06-20 10:00] VITALS: BP 114/80
--- NOTE | 2019-06-20 11:30 | NUR ---
Reviewed discharge instructions with pt. Pt verbalized understanding. Pt is alert, oriented and does have slight pain in her upper arms due to immunizations. Pt received the Flu vaccine today and had received the pneumonia vaccine on 06/18/19. All of pt's belongings were returned to her. Pt was picked up by an [employer] covered by her insurance, and will be driven home.
== END 2019-06-20 12:15 | disposition home or self-care (01) | DRG 139 ==
LOC: ER 18:06 → ED HOLD 21:32 → ORTHO 4S 22:40
PROVIDERS: ADMIT Internal Medicine; ATTEND Family Medicine
PROC: 0W993ZZ Drainage of Right Pleural Cavity, Percutaneous Approach (ICD-10-PCS; 2019-06-17)
PROC: 3E0234Z Introduction of Serum, Toxoid and Vaccine into Muscle, Percutaneous Approach (ICD-10-PCS; 2019-06-18)
PROC: 3E02340 Introduction of Influenza Vaccine into Muscle, Percutaneous Approach (ICD-10-PCS; principal; 2019-06-20)
DX: J18.9 Pneumonia, unspecified organism (principal); J86.9 Pyothorax without fistula; E43 Unspecified severe protein-calorie malnutrition; J95.811 Postprocedural pneumothorax; J91.8 Pleural effusion in other conditions classified elsewhere; F15.10 Other stimulant abuse, uncomplicated; J44.0 Chronic obstructive pulmonary disease with (acute) lower respiratory infection; F17.210 Nicotine dependence, cigarettes, uncomplicated; R06.03 Acute respiratory distress; J98.01 Acute bronchospasm; Z79.82 Long term (current) use of aspirin; Z87.01 Personal history of pneumonia (recurrent); Z79.899 Other long term (current) drug therapy; Z23 Encounter for immunization; Z68.36 Body mass index [BMI] 36.0-36.9, adult
CPT/HCPCS: 32555; 36415; 71045; 71046; 71250; 80048; 80053; 82945; 83605; 83615; 83880; 83986; 84145; 85025; 86703; 87040; 87070; 87081; 89051; 90732; 94640; 94760; 96361; 96374; 99285; G0378; J0696; J1650; J1940; J2930; Q2037

== ENCOUNTER 2019-08-12 22:19 | Emergency (ER) | payer MEDICAID ==
[~2019-08-12] VITALS: Ht 165.1 cm; Wt 90.9 kg
[~2019-08-12 22:19] MED LIST changes: -ASPI-10 PO; -LEVO750T46 PO; -NICO-631 TD
[2019-08-12] MEDS ORDERED: ketorolac tromethamine 15mg/ml inj. IM ONE (23:05)
[2019-08-12 23:36] VITALS: BP 146/82
== END 2019-08-12 23:40 | disposition home or self-care (01) ==
LOC: ER 22:20
DX: M25.561 Pain in right knee (principal); I50.9 Heart failure, unspecified; F15.90 Other stimulant use, unspecified, uncomplicated; F10.99 Alcohol use, unspecified with unspecified alcohol-induced disorder; Z79.899 Other long term (current) drug therapy; X50.1XXA Overexertion from prolonged static or awkward postures, initial encounter; Y93.89 Activity, other specified; Y92.89 Other specified places as the place of occurrence of the external cause; Y99.8 Other external cause status; Y90.9 Presence of alcohol in blood, level not specified
CPT/HCPCS: 29505; 96372; 99283; J1885

== ENCOUNTER 2020-03-28 22:19 | Emergency (ER) | payer MEDICAID ==
[~2020-03-28] VITALS: Ht 165.1 cm; Wt 90.9 kg
[2020-03-28] MEDS ORDERED: ibuprofen tablet 400 MG TABLET PO ONE (22:45)
[2020-03-28] MEDS ORDERED: acetaminophen 325mg tablet PO ONE (22:45)
--- NOTE | 2020-03-28 22:50 | NUR ---
ULTRASOUND IN ON THEIR WAY IN - PER THEIR REQUEST PT WAS GIVEN WATER AND ASKED TO FILL HER BLADDER.
[2020-03-28 22:55] LABS: BASOPHILS % (AUTO) 0.4 % (0-1); EOSINOPHILS # (AUTO) 0.2 X10'3 (0-0.9); EOSINOPHILS % (AUTO) 2.7 % (0-6); HEMATOCRIT 40.6 % (35.0-45.0); HEMOGLOBIN 13.6 g/dl (12.0-16.0); LYMPHOCYTES # (AUTO) 1.8 X10'3 (1.1-4.8); LYMPHOCYTES % (AUTO) 21.2 % (21-51); MEAN CORPUSCULAR HEMOGLOBIN 30.6 PG (27.0-31.0); MEAN CORPUSCULAR HGB CONC 33.5 g/dL (33.0-36.5); MEAN CORPUSCULAR VOLUME 91.2 FL (78-98); MEAN PLATELET VOLUME 8.2 FL (7.4-10.4); MONOCYTES # (AUTO) 0.4 X10'3 (0-0.9); MONOCYTES % (AUTO) 5.4 % (2-12); NEUTROPHILS # (AUTO) 5.8 X10'3 (1.8-7.7); NEUTROPHILS % (AUTO) 70.3 % (42-75); PLATELET COUNT 211 X10'3 (140-440); RED BLOOD COUNT 4.46 X10'6 (4.20-5.60); RED CELL DISTRIBUTION WIDTH 13.4 % (11.5-14.5); WHITE BLOOD COUNT 8.3 X10'3 (4.5-11.0)
[2020-03-28 22:55] LABS: CLARITY,URINE CLEAR (Clear); COLOR,URINE YELLOW (Yellow); GLUCOSE, URINE NEGATIVE (Neg); KETONES,URINE TRACE mg/dl (Neg); LEUKOCYTE ESTERASE ,URINE NEGATIVE (Neg); NITRITES, URINE NEGATIVE (Neg); OCCULT BLOOD,URINE NEGATIVE (Neg); PROTEIN,URINE NEGATIVE (Neg); UROBILINOGEN,URINE 0.2 E.U/dL (0.2-1.0)
[2020-03-28 22:59] LABS: URINE HCG NEGATIVE (NEG)
[2020-03-28 23:04] LABS: UA COLLECTION TYPE CLN CATCH MIDSTREAM
[2020-03-28 23:10] LABS: ALANINE AMINOTRANSFERASE 34 U/L (12-78); ALBUMIN 3.6 G/DL (3.4-5.0); ALKALINE PHOSPHATASE 99 IU/L (46-116); ANION GAP 9 (8-16); ASPARTATE AMINO TRANSFERASE 22 U/L (10-37); BILIRUBIN,TOTAL 0.3 MG/DL (0.1-1.0); BLOOD UREA NITROGEN 12 MG/DL (7-18); BUN/CREATININE RATIO 17.1 (6.6-38.0); CALCIUM 8.4 MG/DL (8.5-10.1); CHLORIDE 106 MMOL/L (99-107); GLUCOSE 129 MG/DL (70-104); LIPASE 110 U/L (73-393); POTASSIUM 3.3 MMOL/L (3.5-5.1); SODIUM 142 MMOL/L (135-145); TOTAL CARBON DIOXIDE 26.9 MMOL/L (24-32); TOTAL PROTEIN 7.1 G/DL (6.4-8.2); eGFR 88 ML/MIN
[2020-03-29 00:04] VITALS: BP 149/99
== END 2020-03-29 00:06 | disposition home or self-care (01) ==
LOC: ER 22:20
DX: R10.31 Right lower quadrant pain (principal); I50.9 Heart failure, unspecified; F15.90 Other stimulant use, unspecified, uncomplicated; Z72.89 Other problems related to lifestyle; Z79.899 Other long term (current) drug therapy
CPT/HCPCS: 36415; 76856; 80053; 81003; 81025; 83690; 85025; 99284

== ENCOUNTER 2021-02-21 15:32 | Emergency (ER) | payer MEDICAID ==
[~2021-02-21] VITALS: Ht 165.1 cm; Wt 102.0 kg
[2021-02-21] MEDS ORDERED: DOXYCYCLINE 100MG CAPSULE PO STA (15:58)
[2021-02-21] MEDS ORDERED: cephalexin 500mg capsule PO ONE (16:00)
[2021-02-21] MEDS ORDERED: ketorolac tromethamine 15mg/ml inj. IM ONE (16:00)
[2021-02-21] MEDS ORDERED: DOXY100C43 PO (16:02)
[2021-02-21] MEDS ORDERED: CEPH-585 PO (16:02)
[2021-02-21] MEDS ORDERED: ketorolac trometh. 30mg/ml inj. IM ONE (16:10)
--- NOTE | 2021-02-21 16:18 | NUR ---
REDDENED BORDER AREA ON CALF MARKED WITH SKIN MARKER.
[2021-02-21 16:22] VITALS: BP 110/66
== END 2021-02-21 16:24 | disposition home or self-care (01) ==
LOC: ER 15:32
DX: L03.90 Cellulitis, unspecified (principal); R51.9 Headache, unspecified; R50.9 Fever, unspecified; I50.9 Heart failure, unspecified; F15.90 Other stimulant use, unspecified, uncomplicated; Z87.01 Personal history of pneumonia (recurrent); Z72.89 Other problems related to lifestyle; Z79.2 Long term (current) use of antibiotics; Z79.899 Other long term (current) drug therapy
CPT/HCPCS: 96372; 99283; J1885